=== PATIENT | female | born 1995 | race African-American/Black ===

== ENCOUNTER 2024-08-11 09:01 | Emergency (ER) | payer OTHER ==
[~2024-08-11] VITALS: Ht 172.7 cm; Wt 64.9 kg
[2024-08-11 09:24] VITALS: PULSE 62; RESP 18; TEMP 98.7
[2024-08-11] MEDS ORDERED: METHOCARBAMOL750 MG PO (09:55)
[2024-08-11] MEDS: ORPHENADRINE CITRATE 30 MG/ML VIAL IM ONE (09:56)
[2024-08-11] MEDS: KETOROLAC TROMETHAMINE 60 MG/2 ML VIAL IM ONE (09:56)
[2024-08-11 10:31] VITALS: BP 155/97; PULSE 52; RESP 18; TEMP 98.2; O2SAT 100
== END 2024-08-11 10:33 | disposition home or self-care (01) ==
LOC: ER 09:28
DX: G44.209 Tension-type headache, unspecified, not intractable (principal); M62.838 Other muscle spasm; R20.2 Paresthesia of skin; I10 Essential (primary) hypertension; J45.909 Unspecified asthma, uncomplicated
CPT/HCPCS: 99283; J1885; J2360